=== PATIENT | male | born 1980 | race Caucasian/White ===

== ENCOUNTER 2018-01-27 20:38 | Emergency (ER) | payer MEDICAID, SELFPAY ==
[2018-01-27 21:02] VITALS: BP 121/81; PULSE 106; RESP 20; TEMP 36.8; O2SAT 97
--- NOTE | 2018-01-27 21:41 | ED.GENADUL_ITS ---
Disposition Clinical Impression: Suicidal ideation, Alcohol intoxication Disposition: [facility] Condition: Stable Instructions: Depression (ED), Alcohol Intoxication (ED), Suicide Prevention for Adults (ED) Additional Instructions: Mental health will reevaluate you in the morning at the correctionor center once clinically sober around 4am to discuss your mental health and feelings of suicide. We do this for your safety and to prevent a psychiatric admission if you change your thought process and are no longer suicidal when you are sober. Return to the emergency department any worsening or new concerning symptoms. Medical Decision Making - Lab Data Laboratory Tests 01/27/18 01/27/18 01/27/18 21:50 21:50 23:19 WBC 9.02 RBC 4.86 Hgb 15.5 Hct 44.9 MCV 92.4 MCH 31.9 MCHC 34.5 RDW 13.8 Plt Count 317 MPV 9.5 Immature Gran % 0.6 Neutrophils % 63.6 Lymphocytes % 26.6 Monocytes % 6.5 Eosinophils % 2.0 Basophils % 0.7 Absolute Neutrophils 5.74 Absolute Lymphocytes 2.40 Absolute Monocytes 0.59 Absolute Eosinophils 0.18 Absolute Basophils 0.06 Sodium 140 Potassium 3.9 Chloride 104 Carbon Dioxide 27.5 Anion Gap 8.5 BUN 10 Creatinine 0.76 Estimated GFR/1.73 m2 >= 60.00 Glucose 91 Calcium 9.1 Total Bilirubin 0.2 AST 16 ALT 27 Alkaline Phosphatase 27 L Total Protein 8.3 H Albumin 4.3 Urine Opiates Screen Negative Urine Methadone Screen Negative Ur Barbiturates Screen Negative Ur Tricyclics Screen Negative Ur Amphetamines Screen Negative U Benzodiazepines Scrn Negative Urine Cocaine Screen Negative Ur THC Screen Negative Ethyl Alcohol 256.4 - Medical Decision Making 37-year-old male with a history of depression previously treated with Wellbutrin and Zoloft without relief who presents intoxicated and suicidal. Patient states he plans to put a bullet in my mouth . He states he has felt this way most days recently for the past few weeks. Denies homicidal ideation. Denies visual or auditory hallucinations. Patient arrived to ED intoxicated. Heart rate 106. Remainder vitals within normal limits. Will obtain screening labs. 2219 --patient threatening to leave. Patient became verbally threatening to staff. While I was on the phone, PEBBLES Corral ordered Benadryl and Ativan IM to calm patient down and he was placed in restraints. Patient then became calm and was able to answer questions more appropriately. 230 --alcohol 256. Patient will be sober at 4 AM. Case discussed with mental health - will plan to send patient to the correctional center until sober. 2329 --patient is again threatening to leave and is requesting that the restraints be removed. Pt tried to get out of restraints himself and required multiple staff members to keep him restrained. Remainder of labs within normal limits. Will plan to send patient to correctional center until clinically sober and to be reevaluated by mental health at that time to determine if he will having feelings of suicidal ideation. Pt was informed of plan and is agreeable. History of Present Illness - General Chief complaint: PsychEval Stated complaint: EVAL Time Seen by Provider: 01/27/18 21:35 Source: patient Mode of arrival: ambulatory Limitations: no limitations - History of Present Illness Initial comments: Patient is a 37-year-old male with a history of depression who presents with suicidal ideation. Patient states he has felt this way most days for the past couple weeks. He states he has a previous history of suicide attempt in which he cut his wrists. Patient states he plans to put a bullet in my mouth . Patient admits to drinking alcohol tonight. Patient admits to occasional methamphetamine use but denies this tonight. Patient states he has taken Wellbutrin and Zoloft in the past but they made his depression worse and he has not taken anything for the past year. He denies homicidal ideation. - Related Data Nortriptyline HCl 10 mg PO HS #60 cap 12/25/12 Cephalexin [Keflex] 500 mg PO QID #28 cap 08/10/14 Duloxetine HCl [Cymbalta] 30 mg PO BID 08/10/14 Allergies Allergy/AdvReac Type Severity Reaction Status Date / Time No Known Allergies Allergy Unverified 08/10/14 13:17 Review of Systems Constitutional: denies: chills, fever Eyes: denies: eye pain ENT: denies: ear pain, dental pain Respiratory: denies: cough, shortness of breath Cardiovascular: denies: chest pain, dyspnea on exertion Gastrointestinal: denies: abdominal pain, nausea, vomiting Genitourinary: denies: urgency, dysuria, frequency Musculoskeletal: denies: back pain Skin: denies: rash, lesions Neurological: denies: headache, weakness, numbness Psychiatric: suicidal thoughts. denies: anxiety, depression, auditory hallucinations, visual hallucinations, homicidal thoughts Past Medical History - Past Medical History Medical history: asthma TBI Surgical history: appendectomy, other (Finger surgery) Psychiatric history: depression, post traumatic stress - Social History Smoking status: current everyday smoker Alcohol use: occasionally Drug use: cocaine (occasional speed) General Exam - General Limitations: no limitations General appearance: alert, in no apparent distress - Eye Eye exam: Present: PERRL, EOMI - Respiratory Respiratory exam: Present: normal lung sounds bilaterally. Absent: respiratory distress, wheezes, rales, rhonchi, stridor - Cardiovascular Cardiovascular Exam: Present: regular rate, normal rhythm. Absent: bradycardia - GI/Abdominal GI/Abdominal exam: Present: soft, normal bowel sounds. Absent: distended, tenderness, guarding, rebound, rigid - Neurological Exam Neurological exam: Present: alert, oriented X3, other (She was slurred speech, appears intoxicated) - Psychiatric Psychiatric exam: Present: flat affect - Skin Skin exam: Present: warm, dry, intact Course Vital Signs - 24 hr 01/27/18 21:02 Temperature 98.2 F Pulse 106 H Respiratory 20 Rate Blood Pressure 121/81 Pulse Oximetry 97
[2018-01-27 21:57] LABS: Abs Immature Grans 0.05 k/cumm (0.0-0.09); Absolute Basophil Count 0.06 k/cumm (0.0-0.2); Absolute Eosinophil Count 0.18 k/cumm (0.0-0.7); Absolute Monocyte Count 0.59 k/cumm (0.11-0.7); Absolute Neutrophil Count 5.74 k/cumm (1.2-6.7); Basophils % 0.7; HCT 44.9 % (40.0-50.0); HGB 15.5 g/dL (13.5-17.5); Immature Grans % 0.6; Lymphocytes % 26.6; Mean Corp. HGB Concentration 34.5 g/dL (32.0-36.0); Mean Corpuscular Hemoglobin 31.9 pg (27.0-33.0); Mean Corpuscular Volume 92.4 fL (80-95); Mean Platelet Volume 9.5 fL (8.0-11.0); Monocytes % 6.5; Neutrophils % 63.6; Platelet Count 317 x1000/uL (130-400); RBC 4.86 m/cumm (4.50-6.00); RBC Distribution Width 13.8 % (11.8-14.1); White Blood Cell Count 9.02 k/cumm (4.4-10.8)
--- NOTE | 2018-01-27 21:58 | NUR.NOTE ---
Nursing Note: Sitting on stretcher, refusing to change into paper scrubs, wants to leave.
[2018-01-27] MEDS: diphenhydrAMINE 50 MG/ML VIAL (22:18)
[2018-01-27 22:19] LABS: ALT 27 U/L (12-78); AST 16 U/L (15-37); Albumin 4.3 g/dL (3.4-5.0); Alkaline Phosphatase 27 U/L (46-116); Anion Gap 8.5 mmol/L (3-11); BUN 10 mg/dL (7-18); Bilirubin, Total 0.2 mg/dL (0.2-1.0); CO2 27.5 mmol/L (21.0-32.0); CREATININE 0.76 mg/dL (0.70-1.30); Calcium 9.1 mg/dL (8.5-10.1); Chloride 104 mmol/L (98-107); ETHANOL BLOOD 256.4 mg/dL (<3); Glucose 91 mg/dL (70-100); Potassium 3.9 mmol/L (3.5-5.1); Sodium 140 mmol/L (136-145); Total Protein 8.3 g/dL (6.4-8.2)
[2018-01-27] MEDS: LORazepam 2 MG/ML VIAL (22:19)
[2018-01-27 23:36] LABS: *AMPHETAMINES SCREEN URINE Negative (Negative); *BARBITURATES SCREEN URINE Negative (Negative); *BENZODIAZEPINES SCREEN URINE Negative (Negative); Cannabinoids THC Negative (Negative); Cocaine Screen,Urine Negative (Negative); METHADONE URINE SCREEN Negative (Negative); OPIATES URINE SCREEN Negative (Negative)
[2018-01-27 23:47] LABS: Tricyclic Antidepressants Negative (Negative)
== END 2018-01-28 00:38 | disposition home or self-care (01) ==
PROVIDERS: Emergency Provider Physician Assistant; PCP Family Medicine
DX: F32.9 Major depressive disorder, single episode, unspecified (principal); F10.129 Alcohol abuse with intoxication, unspecified; Y90.8 Blood alcohol level of 240 mg/100 ml or more; R45.851 Suicidal ideations; Z78.1 Physical restraint status
CPT/HCPCS: 36415; 80053; 80307; 96372; 99285; 80320; 85025; 99284; J1200; J2060

== ENCOUNTER 2025-04-07 18:32 | Emergency (ER) | payer SELFPAY ==
[2025-04-07 18:33] VITALS: BP 144/83; PULSE 99; RESP 18; TEMP 36.4; O2SAT 97
--- NOTE | 2025-04-07 19:02 | W.ED.GENAD ---
Discharge Plan Disposition Patient Disposition: Home Condition: Stable Discharge Details Clinical Impression: Dog bite of left hand Primary Care Provider: Tiburcio Merino ED Provider: John Ibanez Home Meds and New Rx's Prescriptions: New amoxicillin-pot clavulanate 875-125 mg tablet 1 tab PO BID 10 Days Qty: 20 0RF Continued nortriptyline 10 MG capsule 10 mg PO HS Qty: 60 Rx Instructions: If sleep not improved in 2 weeks, increase to two caps at bedtime. duloxetine [Cymbalta] 30 MG capsule,delayed release(DR/EC) 30 mg PO BID lacosamide [Vimpat] 200 mg tablet 200 mg PO BID trazodone 100 mg tablet 100 mg PO QHS PRN desvenlafaxine succinate [Pristiq] 100 mg tablet extended release 24 hr 100 mg PO DAILY Discharge Instructions Instructions: Amoxicillin and Clavulanate, Animal Bites ED, Tdap (Tetanus, Diphtheria, Pertussis) Vaccine CDC Vaccine Information Statement (VIS) Additional Instructions: You were seen in the emergency department for the dog bite of your left hand, I am sending you home on Augmentin, please keep your wounds clean and dry, dressed with Neosporin and bandages, please return to the ER for any increasing signs of infection like increasing swelling, redness, red streaking up the arm, fever nausea. We updated your Tdap today. Stand Alone Forms: Portal Information Referrals: Tiburcio Merino [Primary Care Provider, Medicine] Discharge Data Discharge Date/Time-TO BE ENTERED AT DEPARTURE: 04/07/25 20:20 HPI General Date/Time Provider Initiated Documentation: 04/07/25 18:55. HPI Narrative: 44 year-old male presents to ED today by POV/ambulating with a chief complaint of dog bite to L hand- some superficial punctures while trying to break up two dogs that were fighting- it is his friends dog who is UTD on all shots with onset just prior to arrival. Quality described as generalized pain and bruising of dorsal L hand, no radiation to fever, red streaking up the arm, deep wounds, ROM limit, numbness/tingling. Severity is described as moderate. Palliating factors include did wash it in hydrogen peroxide after injury. Provoking factors include nothing specific. Events leading up to the incident/Associated Symptoms: Tdap not likely UTD, patient is unsure. Patient not anticoagulated. Related Data Home Medications Medication Instructions Recorded Confirmed nortriptyline 10 mg capsule 10 mg PO HS #60 caps 12/25/12 duloxetine 30 mg capsule,delayed 30 mg PO BID 08/10/14 08/10/14 release (Cymbalta) amoxicillin 875 mg-potassium 1 tab PO BID 10 days #20 tabs 04/07/25 clavulanate 125 mg tablet desvenlafaxine succinate 100 mg 100 mg PO DAILY 04/07/25 04/07/25 tablet,extended release 24 hr (Pristiq) lacosamide 200 mg tablet (Vimpat) 200 mg PO BID 04/07/25 04/07/25 trazodone 100 mg tablet 100 mg PO QHS PRN 04/07/25 04/07/25 Previous Rx's Medication Instructions Recorded amoxicillin 875 mg-potassium 1 tab PO BID 10 days #20 tabs 04/07/25 clavulanate 125 mg tablet Allergies Allergy/AdvReac Type Severity Reaction Status Date / Time No Known Allergies Allergy Unverified 04/07/25 18:37 General Stated Complaint: Laceration JEN: 3 Review of Systems All systems reviewed & are unremarkable except as noted in HPI and below Exam Narrative Exam Narrative: GENERAL APPEARANCE: Well-nourished, non-toxic, awake and alert, atraumatic, no acute distress. SKIN: Warm, pink, dry, superficial punctures that are not deep to the dorsal left hand with minor bruising and swelling, no active bleeding, no exposed tendon, range of motion intact, left radial pulse 2+, sensation intact, minor 1 cm scratch to left ankle not from bite HEAD: Normocephalic, atraumatic, normal hair distribution for gender/age. EYES: Normal conjunctiva, no exudates on lids/lashes. ENT: Nares patent, no circumoral cyanosis, no facial swelling NECK: Supple, trachea midline, painless cervical ROM. LUNGS/CHEST: Non-labored respirations, normal A/P diameter, symmetrical expansion, no chest wall deformity HEART (CV/PV): Regular rate, no peripheral edema, no JVD. ABDOMEN: Soft, non-distended, no guarding. MSK: Normal ROM, no swelling/deformity to bilateral UEs or LEs, moving all extremities without weakness, no cyanosis, spine midline without tenderness, normal curvature. NEURO: Mental Status AAOx4 - alert to person, place, time, events No facial droop, no forehead involvement. Motor: No focal weakness - strength 5/5 in bilateral UEs and LEs, proximal and distal, symmetric. Sensory: sensation intact to light touch globally. Gait normal: patient ambulated without ataxia into ED room. PSYCH: euthymic, cooperative, pleasant, appropriate speech Course Vital Signs Vital signs: Vital Signs Temperature 36.4 C 04/07/25 18:33 Pulse 99 H 04/07/25 18:33 Respiratory Rate 18 04/07/25 18:33 Blood Pressure 144/83 H 04/07/25 18:33 Pulse Oximetry 97 04/07/25 18:33 Temperature 36.4 C 04/07/25 18: Pulse 99 H 04/07/25 18:33 Respiratory Rate 18 04/07/25 18:33 Blood Pressure 144/83 H 04/07/25 18:33 Pulse Oximetry 97 04/07/25 18:33 Pain Level 4 04/07/25 18:33 Medical Decision Making This dictation utilizes [id number] dictation software and may contain unedited grammatical errors. 44 year-old male presents to ED today by POV/ambulating with a chief complaint of dog bite to L hand- some superficial punctures while trying to break up two dogs that were fighting- it is his friends dog who is UTD on all shots with onset just prior to arrival. Quality described as generalized pain and bruising of dorsal L hand, no radiation to fever, red streaking up the arm, deep wounds, ROM limit, numbness/tingling. Severity is described as moderate. Palliating factors include did wash it in hydrogen peroxide after injury. Provoking factors include nothing specific. Events leading up to the incident/Associated Symptoms: Tdap not likely UTD, patient is unsure. Patients' medical history: Noncontributory. Family and social history: Noncontributory. Patient is R-hand dominant. Pertinent exam findings / vital signs include superficial punctures that are not deep to the dorsal left hand with minor bruising and swelling, no active bleeding, no exposed tendon, range of motion intact, left radial pulse 2+, sensation intact, minor 1 cm scratch to left ankle not from bite. Differential / pathologies of concern include dog bite, cellulitis. Diagnostic studies of: - Discussed with the patient that I would encourage x-ray of the left hand, patient declined Interventions of: - Rx for Augmentin, updated tetanus status, cleaned with prolonged soaking in dilute Betadine and saline as well as vigorous scrub with surgical sponge. ED Course/Assessment/Plan: 44-year-old male presents with superficial dog bite of the left hand onset just prior to arrival, the punctures do not appear to be very deep and he is intact range of motion and sensation with no lymphadenitis spreading up the arm, he is a minor scratch to his left ankle not from the bite, he refused x-ray even after multiple discussions to encourage him to do this as he had some minor bruising and swelling, updated tetanus and Rx for Augmentin with strict return criteria for any worsening despite treatment. Findings not consistent with tendon laceration, deep layer involvement. Disposition of Dog Bite of Left Hand. Patient verbalized understanding of the plan and return to ED criteria and engaged in shared decision making. Medical Records Medical records reviewed: Yes I reviewed the patient's medical records. [facility] All Active Problems (Updated 04/07/25 @ 19:37 by PEBBLES Brown) Dog bite of left hand (Acute) Social History Smoking/Tobacco Use Status: Former Tobacco Use Smoking risk assessment performed?: Yes Alcohol Intake: current Alcohol Intake frequency: 0-2 drinks per day Drug use: Never Substance use type: does not use Housing: homeless Do you feel safe at home: Yes Do you feel safe in your relationship?: Yes
[2025-04-07] MEDS: Amoxicillin 875/Clav. 125 TAB PO (19:47)
[2025-04-07] MEDS: Diph,Pertuss(Acell),Tet Vac/Pf 0.5 ML SYR IM (20:15)
== END 2025-04-07 20:20 | disposition home or self-care (01) ==
LOC: ER 20:01
PROVIDERS: Emergency Provider Physician Assistant; PCP Family Medicine
DX: S61.452A Open bite of left hand, initial encounter (principal); W54.0XXA Bitten by dog, initial encounter; Z23 Encounter for immunization
CPT/HCPCS: 99283; 99284; 90471; 90715